=== PATIENT | male | born 1955 | race African-American/Black ===

== ENCOUNTER 2019-01-21 20:26 | Emergency (ER) | payer MEDICAID ==
[~2019-01-21] VITALS: Ht 170.2 cm; Wt 73.0 kg
[2019-01-22 00:33] VITALS: BP 140/88
== END 2019-01-22 00:09 | disposition left against medical advice (07) ==
LOC: ER 21:06
DX: M79.662 Pain in left lower leg (principal); Z53.21 Procedure and treatment not carried out due to patient leaving prior to being seen by health care provider

== ENCOUNTER 2019-02-08 11:45 | Inpatient (IN) | payer MEDICAID ==
[~2019-02-08] VITALS: Ht 180.3 cm; Wt 72.1 kg
[2019-02-08] MEDS ORDERED: LORAZEPAM 2MG/ML CPJ IV ONE (12:45)
[2019-02-08] MEDS ORDERED: SODIUM CHLORIDE 0.9% 1,000 ML IV ONE (12:45)
[2019-02-08 13:10] LABS: BASOPHILS % 0.5 % (0.0-2.0); EOSINOPHILS % 1.4 % (0.0-5.0); HEMATOCRIT. 42.2 % (42.0-52.0); LYMPHOCYTES % 33.5 % (20.0-50.0); MEAN CORPUSCULAR HEMOGLOBIN 28.6 pg (28.0-32.0); MEAN CORPUSCULAR VOLUME 86.1 fL (80.0-94.0); MEAN PLATELET VOLUME 8.1 fl (7.4-10.4); MONOCYTES % 7.5 % (2.0-8.0); NEUTROPHILS % 57.1 % (40.0-76.0); PLATELET 206 x1000/uL (130-400); RED BLOOD CELL COUNT 4.91 mill/uL (4.7-6.1); RED CELL DISTRIBUTION WIDTH 13.6 % (11.6-14.6)
[2019-02-08 13:15] LABS: CHLORIDE 104 mEq/L (98-107)
[2019-02-08 13:19] LABS: ETHANOL BLOOD < 10 mg/dL
[2019-02-08 14:39] LABS: *AMPHETAMINES SCREEN URINE NEGATIVE (NEGATIVE); *BARBITURATES SCREEN URINE NEGATIVE (NEGATIVE); *BENZODIAZEPINES SCREEN URINE NEGATIVE (NEGATIVE); *COCAINE SCREEN URINE NEGATIVE (NEGATIVE); METHADONE URINE SCREEN NEGATIVE (NEGATIVE)
[2019-02-08 14:40] LABS: CANNABINOID URINE SCREEN NEGATIVE (NEGATIVE); OPIATES URINE SCREEN NEGATIVE (NEGATIVE); PHENCYCLIDINE URINE SCREEN NEGATIVE (NEGATIVE)
[2019-02-08] MEDS ORDERED: MECLIZINE 25MG TABLET PO ONE (15:00)
[2019-02-08 18:33] VITALS: BP 166/85
[2019-02-08] MEDS ORDERED: SIMV20TA6 PO (19:49)
[2019-02-08] MEDS ORDERED: CLON0.2T PO (19:49)
[2019-02-08] MEDS ORDERED: ASPI-1159 PO (19:49)
[2019-02-08] MEDS ORDERED: GABA-529 PO (19:49)
[2019-02-08] MEDS ORDERED: HYDR25TA PO (19:49)
[2019-02-08 20:00] VITALS: BP 108/66
[2019-02-08 20:18] VITALS: BP 166/85
[2019-02-08] MEDS ORDERED: CLONIDINE 0.1MG TABLET PO PRN (21:30)
[2019-02-08] MEDS: HYDROCODONE/ACETAMINOPHEN 10/325MG TABLET PO PRN (21:59)
[2019-02-09 00:05] VITALS: BP 107/69
[2019-02-09 04:00] VITALS: BP 99/52
[2019-02-09] MEDS: HYDROCODONE/ACETAMINOPHEN 10/325MG TABLET PO PRN ×3 (05:53→20:38)
[2019-02-09 08:00] VITALS: BP 98/58
[2019-02-09] MEDS ORDERED: MEDICATION NOT ON FORMULARY EA (Gabapentin 100 MG) PO SCH (09:00)
[2019-02-09] MEDS: GABAPENTIN 100MG CAPSULE PO SCH ×3 (09:00→17:42)
[2019-02-09] MEDS: ASPIRIN 81MG EC TABLET PO SCH (09:00)
[2019-02-09] MEDS ORDERED: HYDROCHLOROTHIAZIDE 25MG TABLET PO SCH (09:00)
[2019-02-09] MEDS ORDERED: ACETAMINOPHEN 325MG TABLET PO PRN (10:30)
[2019-02-09 11:35] VITALS: BP 114/69
[2019-02-09 16:00] VITALS: BP 126/71
[2019-02-09 16:14] LABS: CLARITY URINE CLEAR (CLEAR); COLOR URINE YELLOW (YELLOW); KETONES URINE NEGATIVE (NEGATIVE); LEUKOCYTE ESTERASE URINE NEGATIVE (NEGATIVE); NITRITE URINE NEGATIVE (NEGATIVE); OCCULT BLOOD URINE 1+ (NEGATIVE); PH URINE 6.5 (4.5-8.0); PROTEIN URINE NEGATIVE (NEGATIVE); SPECIFIC GRAVITY URINE 1.013 (1.005-1.030); UROBILINOGEN URINE 0.2 E.U./dL (0.2-1.0)
[2019-02-09 20:00] VITALS: BP 119/76
[2019-02-09] MEDS: ATORVASTATIN CALCIUM 20MG TABLET PO SCH (20:38)
[2019-02-10 00:05] VITALS: BP 117/65
[2019-02-10 04:00] VITALS: BP 130/71
[2019-02-10] MEDS: HYDROCODONE/ACETAMINOPHEN 10/325MG TABLET PO PRN ×3 (04:00→21:33)
[2019-02-10 07:15] LABS: BASOPHILS % 0.5 % (0.0-2.0); EOSINOPHILS % 1.8 % (0.0-5.0); HEMATOCRIT. 38.2 % (42.0-52.0); HEMOGLOBIN. 12.7 g/dL (14.0-18.0); MEAN CORPUSCULAR HEMOGLOBIN 28.4 pg (28.0-32.0); MEAN CORPUSCULAR VOLUME 85.6 fL (80.0-94.0); MEAN PLATELET VOLUME 8.1 fl (7.4-10.4); NEUTROPHILS % 36.7 % (40.0-76.0); PLATELET 197 x1000/uL (130-400); RED BLOOD CELL COUNT 4.46 mill/uL (4.7-6.1); RED CELL DISTRIBUTION WIDTH 13.5 % (11.6-14.6)
[2019-02-10 07:30] LABS: CHLORIDE 104 mEq/L (98-107)
[2019-02-10 08:00] VITALS: BP 137/76
[2019-02-10] MEDS: GABAPENTIN 100MG CAPSULE PO SCH ×3 (08:47→16:46)
[2019-02-10] MEDS: ASPIRIN 81MG EC TABLET PO SCH (08:48)
[2019-02-10 12:00] VITALS: BP 136/85
[2019-02-10 16:00] VITALS: BP 110/79
[2019-02-10 20:00] VITALS: BP 121/70
[2019-02-10] MEDS: ATORVASTATIN CALCIUM 20MG TABLET PO SCH (21:32)
[2019-02-11] VITALS (7 sets, daily range): BP systolic 108–137; BP diastolic 55–89
[2019-02-11] MEDS: GABAPENTIN 100MG CAPSULE PO SCH ×3 (08:39→17:26)
[2019-02-11] MEDS: ASPIRIN 81MG EC TABLET PO SCH (08:39)
[2019-02-11] MEDS ORDERED: IBUPROFEN 600MG TABLET PO PRN (10:00)
[2019-02-11] MEDS: DEXAMETHASONE 4MG/ML 1ML VIAL IV SCH ×3 (11:44→22:18)
[2019-02-11 12:51] LABS: INR 1.1; PROTHROMBIN TIME 10.8 sec (9.1-11.1)
[2019-02-11] MEDS: MORPHINE SULFATE 4 MG/ML CPJ (NOT FOR IM USE) IV PRN (17:27)
[2019-02-11] MEDS: ATORVASTATIN CALCIUM 20MG TABLET PO SCH (22:18)
[2019-02-12 04:00] VITALS: BP 123/67
[2019-02-12] MEDS: MORPHINE SULFATE 4 MG/ML CPJ (NOT FOR IM USE) IV PRN ×4 (04:07→23:13)
[2019-02-12] MEDS: DEXAMETHASONE 4MG/ML 1ML VIAL IV SCH ×4 (06:04→23:12)
[2019-02-12] MEDS ORDERED: BACITRACIN 15GM TUBE TOP ONE (06:09)
[2019-02-12] MEDS ORDERED: GELATIN SPONGE,ABSORBABLE 12-7MM SPONGE ONE (06:09)
[2019-02-12] MEDS ORDERED: NORMAL SALINE 0.9% 10 ML SYR ONE (06:10)
[2019-02-12] MEDS ORDERED: LIDOCAINE HCL/EPINEPHRINE 1%-EPI 1:100,000 20 ML VIAL ONE (06:10)
[2019-02-12] MEDS ORDERED: THROMBIN (BOVINE) 5000 UNITS/VIAL TOP ONE ×2 (06:10→06:24)
[2019-02-12] MEDS ORDERED: BACITRACIN 50,000 UNITS/VIAL ONE (06:11)
[2019-02-12] MEDS ORDERED: PROPOFOL 200MG/20ML VIAL IV ONE ×2 (06:56→07:46)
[2019-02-12] MEDS ORDERED: ROCURONIUM BROMIDE 10MG/ML VIAL 5ML IV ONE (06:58)
[2019-02-12] MEDS ORDERED: MIDAZOLAM HCL 2 MG/2 ML VIAL ONE (06:59)
[2019-02-12] MEDS ORDERED: FENTANYL CITRATE/PF 50MCG/ML 2ML VIAL ONE (06:59)
[2019-02-12] MEDS ORDERED: SODIUM CHLORIDE 0.9% 10ML VIAL ONE ×3 (07:01→07:39)
[2019-02-12] MEDS ORDERED: HYDRALAZINE 20MG/ML VIAL ONE ×2 (07:01→07:34)
[2019-02-12] MEDS ORDERED: ESMOLOL HCL 10MG/ML 10ML VIAL IV ONE (07:02)
[2019-02-12] MEDS ORDERED: SUCCINYLCHOLINE CHLORIDE 200MG/10ML IV ONE (07:03)
[2019-02-12 07:28] LABS: BASOPHILS % 0.1 % (0.0-2.0); HEMATOCRIT. 41.1 % (42.0-52.0); HEMOGLOBIN. 13.6 g/dL (14.0-18.0); LYMPHOCYTES % 13.2 % (20.0-50.0); MEAN CORPUSCULAR HEMOGLOBIN 28.2 pg (28.0-32.0); MEAN PLATELET VOLUME 8.2 fl (7.4-10.4); NEUTROPHILS % 81.7 % (40.0-76.0); PLATELET 228 x1000/uL (130-400); RED BLOOD CELL COUNT 4.83 mill/uL (4.7-6.1)
[2019-02-12] MEDS ORDERED: LABETALOL HCL 5MG/ML VIAL 20ML IV ONE (07:36)
[2019-02-12] MEDS ORDERED: CEFAZOLIN SODIUM 1000MG/VIAL ONE (07:38)
[2019-02-12] MEDS ORDERED: DEXAMETHASONE 4MG/ML 1ML VIAL ONE (07:58)
[2019-02-12] MEDS ORDERED: ONDANSETRON HCL 4MG/2ML INJ ONE (08:04)
[2019-02-12 08:11] LABS: CHLORIDE 104 mEq/L (98-107)
[2019-02-12] MEDS ORDERED: NEOSTIGMINE METHYLSULFATE 1MG/ML 10 ML VIAL ONE (08:22)
[2019-02-12] MEDS ORDERED: GLYCOPYRROLATE 0.2 MG/ML 2ML VIAL ONE (08:23)
[2019-02-12] MEDS ORDERED: CLONIDINE 0.1MG TABLET PO PRN (08:45)
[2019-02-12] MEDS ORDERED: HYDROMORPHONE HCL/PF 2MG/ML CPJ IV PRN (09:30)
[2019-02-12 12:00] VITALS: BP_SYST 124; BP_SYST 135; BP_DIAS 69; BP_DIAS 72
[2019-02-12] MEDS: GABAPENTIN 100MG CAPSULE PO SCH ×2 (12:07→17:37)
[2019-02-12] MEDS ORDERED: CEFAZOLIN SODIUM 1000MG/VIAL IV SCH (14:00)
[2019-02-12] MEDS: HYDROCODONE/ACETAMINOPHEN 10/325MG TABLET PO PRN (14:42)
[2019-02-12] MEDS: CEFAZOLIN 1000MG PREMIX 50 ML IV SCH ×2 (15:35→21:06)
[2019-02-12 16:00] VITALS: BP 135/72
[2019-02-12 20:00] VITALS: BP 130/74
[2019-02-12] MEDS: ATORVASTATIN CALCIUM 20MG TABLET PO SCH (21:05)
[2019-02-13] VITALS: BP 138/67
[2019-02-13] MEDS: ONDANSETRON HCL 4MG/2ML INJ IV PRN ×2 (00:09→08:37)
[2019-02-13 04:00] VITALS: BP 126/65
[2019-02-13 04:56] LABS: CHLORIDE 103 mEq/L (98-107)
[2019-02-13 05:45] LABS: HEMATOCRIT. 37.7 % (42.0-52.0); HEMOGLOBIN. 12.6 g/dL (14.0-18.0); MEAN CORPUSCULAR HEMOGLOBIN 28.2 pg (28.0-32.0); MEAN CORPUSCULAR VOLUME 84.7 fL (80.0-94.0); MEAN PLATELET VOLUME 8.5 fl (7.4-10.4); PLATELET 223 x1000/uL (130-400); RED BLOOD CELL COUNT 4.46 mill/uL (4.7-6.1); RED CELL DISTRIBUTION WIDTH 13.3 % (11.6-14.6)
[2019-02-13] MEDS: DEXAMETHASONE 4MG/ML 1ML VIAL IV SCH ×2 (06:21→11:11)
[2019-02-13] MEDS: CEFAZOLIN 1000MG PREMIX 50 ML IV SCH ×2 (06:21→13:00)
[2019-02-13 08:00] VITALS: BP 127/65
[2019-02-13] MEDS: GABAPENTIN 100MG CAPSULE PO SCH ×3 (08:10→16:30)
[2019-02-13] MEDS: MORPHINE SULFATE 4 MG/ML CPJ (NOT FOR IM USE) IV PRN (08:37)
[2019-02-13 11:35] LABS: PLATELET ESTIMATE NORMAL
[2019-02-13 11:41] VITALS: BP 128/71
[2019-02-13] MEDS: DEXT 5%/LACTATED RINGERS 1,000 ML IV SCH (13:05)
[2019-02-13 16:00] VITALS: BP 148/77
[2019-02-13 20:00] VITALS: BP 138/72
[2019-02-13] MEDS: ATORVASTATIN CALCIUM 20MG TABLET PO SCH (22:31)
[2019-02-14] VITALS: BP_SYST 127; BP_SYST 148; BP_DIAS 58; BP_DIAS 80
[2019-02-14] MEDS: DEXT 5%/LACTATED RINGERS 1,000 ML IV SCH (00:24)
[2019-02-14 04:00] VITALS: BP 133/64
[2019-02-14] MEDS: MORPHINE SULFATE 4 MG/ML CPJ (NOT FOR IM USE) IV PRN ×2 (04:08→14:20)
[2019-02-14 08:00] VITALS: BP 139/86
[2019-02-14 08:31] LABS: BASOPHILS % 0.7 % (0.0-2.0); HEMATOCRIT. 37.7 % (42.0-52.0); HEMOGLOBIN. 12.5 g/dL (14.0-18.0); LYMPHOCYTES % 21.3 % (20.0-50.0); MEAN CORPUSCULAR HEMOGLOBIN 28.1 pg (28.0-32.0); MEAN CORPUSCULAR VOLUME 84.6 fL (80.0-94.0); MEAN PLATELET VOLUME 7.7 fl (7.4-10.4); MONOCYTES % 9.6 % (2.0-8.0); NEUTROPHILS % 68.4 % (40.0-76.0); PLATELET 208 x1000/uL (130-400); RED BLOOD CELL COUNT 4.46 mill/uL (4.7-6.1); RED CELL DISTRIBUTION WIDTH 13.5 % (11.6-14.6)
[2019-02-14] MEDS: GABAPENTIN 100MG CAPSULE PO SCH ×3 (08:42→17:58)
[2019-02-14 08:55] LABS: CHLORIDE 105 mEq/L (98-107)
[2019-02-14 11:22] VITALS: BP 128/74
[2019-02-14] MEDS ORDERED: LACTULOSE 20G/30ML UDC PO PRN (12:45)
[2019-02-14] MEDS: DOCUSATE SODIUM 250MG CAPSULE PO SCH (13:31)
[2019-02-14 20:00] VITALS: BP 129/78
[2019-02-14] MEDS: ATORVASTATIN CALCIUM 20MG TABLET PO SCH (21:55)
[2019-02-14 23:45] VITALS: BP 148/80
[2019-02-15] MEDS: MORPHINE SULFATE 4 MG/ML CPJ (NOT FOR IM USE) IV PRN ×3 (02:38→14:09)
[2019-02-15 04:00] VITALS: BP 122/74
[2019-02-15 08:00] VITALS: BP 144/80
[2019-02-15] MEDS: GABAPENTIN 100MG CAPSULE PO SCH ×3 (09:29→18:36)
[2019-02-15] MEDS: DOCUSATE SODIUM 250MG CAPSULE PO SCH (09:29)
[2019-02-15 12:00] VITALS: BP 114/78
[2019-02-15] MEDS ORDERED: POLYETHYLENE GLYCOL 3350 (17GM) 1 DOSE PACK PO NR (12:45)
[2019-02-15 13:28] VITALS: BP 114/78
[2019-02-15 16:00] VITALS: BP 147/70
== END 2019-02-15 19:02 | DRG 310 ==
LOC: ER 11:55 → 7WST 16:04 → ENRESERV 17:18 → 6EST 02-12 09:09
PROVIDERS: ADMIT Internal Medicine; ATTEND Internal Medicine
PROC: 0SB40ZZ Excision of Lumbosacral Disc, Open Approach (ICD-10-PCS; principal; 2019-02-12)
PROC: 01NB0ZZ Release Lumbar Nerve, Open Approach (ICD-10-PCS; 2019-02-12)
PROC: 01NR0ZZ Release Sacral Nerve, Open Approach (ICD-10-PCS; 2019-02-12)
DX: M51.17 Intervertebral disc disorders with radiculopathy, lumbosacral region (principal); G93.41 Metabolic encephalopathy; N17.9 Acute kidney failure, unspecified; G82.20 Paraplegia, unspecified; M48.02 Spinal stenosis, cervical region; G90.8 Other disorders of autonomic nervous system; I69.354 Hemiplegia and hemiparesis following cerebral infarction affecting left non-dominant side; Z60.2 Problems related to living alone; M47.27 Other spondylosis with radiculopathy, lumbosacral region; M47.22 Other spondylosis with radiculopathy, cervical region; M48.061 Spinal stenosis, lumbar region without neurogenic claudication; M51.16 Intervertebral disc disorders with radiculopathy, lumbar region; I12.9 Hypertensive chronic kidney disease with stage 1 through stage 4 chronic kidney disease, or unspecified chronic kidney disease; E78.5 Hyperlipidemia, unspecified; N18.9 Chronic kidney disease, unspecified; M48.07 Spinal stenosis, lumbosacral region; Z87.891 Personal history of nicotine dependence; Z79.82 Long term (current) use of aspirin; Z79.899 Other long term (current) drug therapy
CPT/HCPCS: 36415; 70551; 71045; 72100; 72141; 72148; 76000; 80048; 80061; 80305; 80320; 82962; 83880; 84443; 84484; 86850; 86900; 88304; 88311; 93005; 93306; 93880; 95863; 95925; 95926; 95928; 95929; 96361; 96374; 97116; 97162; 97164; 97166; 99285; J0330; J0360; J0690; J1100; J2060; J2250; J2270; J2405; J2704; J2710; J3010; J3490; J7030; J7040; J7121; J8597; G0480

== ENCOUNTER 2019-02-18 00:09 | Emergency (ER) | payer MEDICAID ==
[~2019-02-18] VITALS: Ht 180.3 cm; Wt 84.0 kg
[~2019-02-18 00:09] MED LIST: ASPI-1159 PO; CLON0.2T PO; GABA-529 PO; HYDR25TA PO; SIMV20TA6 PO
[2019-02-18] MEDS ORDERED: ASPIRIN 81MG TABLET PO ONE (00:45)
[2019-02-18] MEDS ORDERED: NITROGLYCERIN 0.4MG TABLET SL SL PRN (00:45)
[2019-02-18] MEDS ORDERED: HALOPERIDOL LACTATE 5MG/ML VIAL IM ONE (00:45)
[2019-02-18 01:10] LABS: BASOPHILS % 0.8 % (0.0-2.0); HEMATOCRIT. 37.7 % (42.0-52.0); HEMOGLOBIN. 12.9 g/dL (14.0-18.0); MEAN CORPUSCULAR HEMOGLOBIN 28.8 pg (28.0-32.0); MEAN PLATELET VOLUME 7.6 fl (7.4-10.4); MONOCYTES % 7.6 % (2.0-8.0); NEUTROPHILS % 38.6 % (40.0-76.0); PLATELET 247 x1000/uL (130-400); RED BLOOD CELL COUNT 4.49 mill/uL (4.7-6.1); RED CELL DISTRIBUTION WIDTH 13.6 % (11.6-14.6)
[2019-02-18] MEDS ORDERED: KETOROLAC 15MG/ML VIAL IV ONE (01:15)
[2019-02-18 01:17] LABS: CHLORIDE 104 mEq/L (98-107)
[2019-02-18 01:20] LABS: ETHANOL BLOOD < 10 mg/dL
[2019-02-18 08:29] VITALS: BP 137/89
== END 2019-02-18 08:37 | disposition short-term general hospital (02) ==
LOC: ER 00:09 → CANBEDREQ 04:39 → ER 08:37
DX: I20.0 Unstable angina (principal); R07.9 Chest pain, unspecified; I10 Essential (primary) hypertension; Z79.82 Long term (current) use of aspirin; Z86.73 Personal history of transient ischemic attack (TIA), and cerebral infarction without residual deficits
CPT/HCPCS: 36415; 71045; 80053; 80320; 83880; 84484; 85025; 93005; 96372; 96374; 99285; J1630; J1885; Z7610; G0480

== ENCOUNTER 2019-03-20 09:03 | Emergency (ER) | payer MEDICAID ==
[~2019-03-20] VITALS: Ht 180.3 cm; Wt 82.0 kg
[2019-03-20 09:15] VITALS: BP 139/70
== END 2019-03-20 11:39 | disposition left against medical advice (07) ==
LOC: ER 09:03
DX: M54.5 Low back pain (principal); Z53.21 Procedure and treatment not carried out due to patient leaving prior to being seen by health care provider